=== PATIENT | female | born 1975 | race Caucasian/White ===

== ENCOUNTER → 2019-01-20 17:27 | Outpatient (CLI) | payer MEDICAID, SELFPAY ==
[2019-01-20 19:09] LABS: Amphetamine/Metha Screen,Urine Negative ng/mL (<1000); Barbiturates Screen,Urine Negative ng/mL (<200); Benzodiazepines Screen,Urine Negative ng/mL (<200); Cannabinoid Screen,Urine Negative ng/mL (<50); Cocaine Screen,Urine Negative ng/mL (<300); Methadone Screen,Urine Negative ng/mL (<300); Opiate Screen,Urine Negative ng/mL (<300); Phencyclidine Screen,Urine Negative ng/mL (<25)
== END ==
PROVIDERS: Visit Provider Emergency Medicine
DX: F41.9 Anxiety disorder, unspecified (principal); Z76.89 Persons encountering health services in other specified circumstances
CPT/HCPCS: 80305

== ENCOUNTER → 2019-03-03 10:59 | Outpatient (CLI) | payer MEDICAID, SELFPAY ==
[2019-03-03 12:50] LABS: Basophils % 0.6 % (0.1-2.0); Eosinophils # 0.8 K/mm3 (0.0-0.4); Eosinophils % 10.3 % (0.1-12.0); Hematocrit 45.9 % (37.0-47.0); Lymphocytes % 41.1 % (10-50); Mean Corpuscular HGB Conc 32.7 g/dL (31.8-35.4); Mean Corpuscular Hemoglobin 32.4 pg (27.0-31.2); Monocytes # 0.4 K/mm3 (0.1-1.0); Monocytes % 5.2 % (1.7-9.3); Neutrophils # 3.1 K/mm3 (1.8-7.8); Neutrophils % 42.9 % (37.0-80.0); Platelet Count 308 K/mm3 (142-424); Red Blood Count 4.64 M/mm3 (4.20-5.40); White Blood Count 7.3 K/mm3 (4.8-10.8)
[2019-03-03 14:23] LABS: Albumin Level 3.9 gm/dL (3.4-5.0); Blood Urea Nitrogen 13 mg/dL (7-18); Calcium 9.1 mg/dL (8.5-10.1); Chloride 102 mmol/L (98-107); Creatinine,Serum 0.64 mg/dL (0.55-1.02); Estimated Glomerular Filt Rate 102 ml/min (>60); GFR (African American) 123 ML/MIN (>60); Globulin 3.8 gm/dl (1.3-3.2); Sodium 139 mmol/L (136-145); Total Protein,Serum 7.7 gm/dL (6.4-8.2)
[2019-03-03 15:01] LABS: Amphetamine/Metha Screen,Urine Negative ng/mL (<1000); Barbiturates Screen,Urine Negative ng/mL (<200); Benzodiazepines Screen,Urine Negative ng/mL (<200); Cannabinoid Screen,Urine Negative ng/mL (<50); Cocaine Screen,Urine Negative ng/mL (<300); Methadone Screen,Urine Negative ng/mL (<300); Opiate Screen,Urine Negative ng/mL (<300); Phencyclidine Screen,Urine Negative ng/mL (<25)
[2019-03-03 15:49] LABS: Alanine Aminotransferase 74 U/L (12-78); Alkaline Phosphatase 94 U/L (46-116); Anion Gap 14.3 mEq/L (5-15); Bilirubin,Total 0.3 mg/dL (0.2-1.0); Carbon Dioxide 27 mmol/L (21.0-32.0); Chol/HDL Ratio 2.3 (1-3.5); Cholesterol 182 mg/dL (140-200); Free T4 (Free Thyroxine) 1.03 ng/dl (0.76-1.46); HDL Cholesterol 80 mg/dL (29-89); LDL Cholesterol 92 mg/dL (0-130); Potassium 4.3 mmoL/L (3.5-5.1); Thyroid Stimulating Hormone 3.49 uIU/ml (0.358-3.740); Triglycerides 52 mg/dL (30-200); VLDL Cholesterol 10 mg/dL (0-40)
[2019-03-03 15:50] LABS: Glucose 65 mg/dL (74-106)
[2019-03-03 15:51] LABS: Aspartate Amino Transferase 52 U/L (15-37)
[2019-03-04 07:11] LABS: Hep A Ab, IgM Negative (Negative); Hepatitis B Core Antibody IgM Negative (Negative); Hepatitis B Surface Antigen Negative (Negative)
[2019-03-05 03:32] LABS: Hepatitis C Antibody >11.0 s/co ratio (0.0-0.9)
== END ==
PROVIDERS: Visit Provider Emergency Medicine
DX: F41.9 Anxiety disorder, unspecified (principal); G47.9 Sleep disorder, unspecified; N92.6 Irregular menstruation, unspecified; R53.83 Other fatigue; Z79.899 Other long term (current) drug therapy
CPT/HCPCS: 36415; 80053; 80061; 80074; 80305; 82652; 84439; 84443; 85025

== ENCOUNTER → 2019-03-20 14:08 | Outpatient (CLI) | payer MEDICAID, SELFPAY ==
[2019-03-20 14:59] LABS: Basophils % 0.5 % (0.1-2.0); Eosinophils # 0.5 K/mm3 (0.0-0.4); Eosinophils % 6.9 % (0.1-12.0); Lymphocytes # 2.6 K/mm3 (0.7-4.5); Lymphocytes % 35.6 % (10-50); Mean Corpuscular HGB Conc 32.5 g/dL (31.8-35.4); Mean Corpuscular Hemoglobin 30.4 pg (27.0-31.2); Mean Corpuscular Volume 93.3 fl (81-99); Mean Platelet Volume 8.1 fl (7.4-10.4); Monocytes # 0.4 K/mm3 (0.1-1.0); Neutrophils # 3.7 K/mm3 (1.8-7.8); Neutrophils % 51.1 % (37.0-80.0); Platelet Count 265 K/mm3 (142-424); Red Cell Distribution Width 13.5 % (11.5-17.5); White Blood Count 7.2 K/mm3 (4.8-10.8)
[2019-03-20 15:37] LABS: Erythrocyte Sedimentation Rate 14 mm/hr (0-20)
[2019-03-20 15:50] LABS: Alanine Aminotransferase 66 U/L (12-78); Albumin Level 3.9 gm/dL (3.4-5.0); Alkaline Phosphatase 99 U/L (46-116); Anion Gap 12.2 mEq/L (5-15); Aspartate Amino Transferase 33 U/L (15-37); Bilirubin,Total 0.3 mg/dL (0.2-1.0); Blood Urea Nitrogen 12 mg/dL (7-18); Calcium 9.2 mg/dL (8.5-10.1); Carbon Dioxide 26 mmol/L (21.0-32.0); Chloride 103 mmol/L (98-107); Creatinine,Serum 0.65 mg/dL (0.55-1.02); Estimated Glomerular Filt Rate 100 ml/min (>60); GFR (African American) 121 ML/MIN (>60); Glucose 93 mg/dL (74-106); Potassium 4.2 mmoL/L (3.5-5.1); Sodium 137 mmol/L (136-145); Total Protein,Serum 7.9 gm/dL (6.4-8.2)
[2019-03-20 15:51] LABS: C-Reactive Protein < 0.2 mg/L (0.0-0.9)
[2019-03-22 11:10] LABS: Hep A Ab, IgM Negative (Negative); Hepatitis B Core Antibody IgM Negative (Negative); Hepatitis B Surface Antigen Negative (Negative)
[2019-03-22 14:10] LABS: Anti-Centromere B Antibodies 0.3 AI (0.0-0.9); Anti-Jo-1 <0.2 AI (0.0-0.9); Anti-Smith Antibody <0.2 AI (0.0-0.9); Antichromatin Antibodies <0.2 AI (0.0-0.9); Antiscleroderma-70 Antibodies <0.2 AI (0.0-0.9); RNP Antibodies 0.2 AI (0.0-0.9); Sjogren's Anti-SS-A 0.2 AI (0.0-0.9); Sjogren's Anti-SS-B <0.2 AI (0.0-0.9)
[2019-03-23 08:16] LABS: Hepatitis C Antibody >11.0 s/co ratio (0.0-0.9)
[2019-03-23 08:16] LABS: Anti-Cyclic Citrullinated Pept 4 units (0-19); Anti-DNA (DS) Ab Qn 2 IU/mL (0-9); RA Latex Turbid. 40.8 IU/mL (0.0-13.9)
[2019-03-25 17:12] LABS: HCV Genotype Charge YES; Hepatitis C Genotype 4 (.)
== END ==
PROVIDERS: Nurse Practitioner Family; Visit Provider Emergency Medicine
DX: L80 Vitiligo (principal); M19.90 Unspecified osteoarthritis, unspecified site; R76.8 Other specified abnormal immunological findings in serum
CPT/HCPCS: 36415; 80053; 80074; 85025; 85651; 86140; 86200; 86225; 86235; 86431; 87522; 87902

== ENCOUNTER → 2019-03-31 12:33 | Outpatient (CLI) | payer MEDICAID, SELFPAY ==
[2019-03-31 13:07] LABS: Prothrombin Time 9.4 seconds (9.4-11.8)
[2019-04-01 09:18] LABS: Hep B Core Ab, Total Negative (Negative)
[2019-04-01 18:47] LABS: Hep A Ab, Total Positive (Negative); Hep B Surface Ab, Qual Reactive (.)
== END ==
PROVIDERS: Visit Provider Emergency Medicine
DX: R76.8 Other specified abnormal immunological findings in serum (principal)
CPT/HCPCS: 36415; 85610; 86704; 86706; 86708

== ENCOUNTER 2021-09-24 18:50 | Emergency (ER) | payer MEDICAID, SELFPAY ==
[2021-09-24 20:34] VITALS: BP 0/0; PULSE 0; RESP 0; TEMP -17.7; TEMP 0; O2SAT 0
== END 2021-09-24 20:45 | disposition left against medical advice (07) ==
PROVIDERS: Emergency Provider Emergency Medicine; PCP Emergency Medicine
DX: Z53.21 Procedure and treatment not carried out due to patient leaving prior to being seen by health care provider (principal)
CPT/HCPCS: 99211

== ENCOUNTER 2024-05-10 15:26 | Outpatient (CLI) | payer MEDICAID, SELFPAY | END 2024-05-10 23:59 | disposition home or self-care (01) | LOC: LAB 15:30 | PROVIDERS: PCP Nurse Practitioner Family; Visit Provider Nurse Practitioner Family | DX: B19.20 Unspecified viral hepatitis C without hepatic coma (principal); R76.8 Other specified abnormal immunological findings in serum | CPT/HCPCS: 36415 ==

== ENCOUNTER 2024-05-31 09:22 | Outpatient (CLI) | payer MEDICAID, SELFPAY ==
--- NOTE | 2024-05-31 09:26 | XR_ITS ---
FINAL REPORT CLINICAL HISTORY: left wrist pain COMPARISON: None FINDINGS: LEFT WRIST Three views demonstrate no acute fracture or dislocation. The visualized joint spaces are normally aligned. The soft tissues are unremarkable. IMPRESSION: No acute bony abnormality. Reviewed, Interpreted and Dictated by Benji Freedman MD Transcribed by Marta Zayas Authenticated and [facility]
[2024-05-31 11:39] LABS: Alanine Aminotransferase 65 U/L (12-78); Albumin Level 4.4 g/dl (3.5-5.0); Albumin/Globulin Ratio 1.3 (1.1-1.8); Alkaline Phosphatase 73 U/L (38-126); Anion Gap 8.7 mEq/L (5-15); Aspartate Amino Transferase 69 U/L (14-36); Bilirubin,Total 0.7 mg/dl (0.2-1.3); Blood Urea Nitrogen 15 mg/dl (7-17); Calcium 9.6 mg/dl (8.4-10.2); Carbon Dioxide 26 mmol/L (22.0-30.0); Chloride 106 mmol/L (98-107); Chol/HDL Ratio 2.5 (1-3.5); Cholesterol 197 mg/dl (140-200); Estimated Glomerular Filt Rate 107 ml/min (>60); GFR (African American) 130 ML/MIN (>60); Globulin 3.4 g/dL (1.3-3.2); Glucose 78 mg/dl (74-100); HDL Cholesterol 78 mg/dl (40-60); Potassium 4.7 mmoL/L (3.5-5.1); Sodium 136 mmol/L (136-145); Total Protein,Serum 7.8 g/dl (6.3-8.2); Triglycerides 64 mg/dl (30-150); VLDL Cholesterol 13 mg/dL (0-40)
[2024-05-31 11:50] LABS: Direct LDL Cholesterol 87.56 mg/dL (100-129)
[2024-05-31 11:55] LABS: 25-OH Vitamin D, Total 34.1 ng/mL (30-100); HIV (1&2) Antibody Rapid NONREACTIVE (NONREACTIVE)
[2024-05-31 12:10] LABS: Thyroid Stimulating Hormone 1.86 uIU/mL (0.465-4.68)
[2024-05-31 13:50] LABS: Basophils % 0.6 % (0.1-2.0); Eosinophils # 0.4 K/mm3 (0.0-0.4); Hematocrit 47.6 % (37.0-47.0); Hemoglobin 15.4 g/dL (12.2-16.2); Lymphocytes # 2.4 K/mm3 (0.7-4.5); Lymphocytes % 40.4 % (10-50); Mean Corpuscular HGB Conc 32.4 g/dL (31.8-35.4); Mean Corpuscular Hemoglobin 32.7 pg (27.0-31.2); Mean Corpuscular Volume 101.2 fl (81-99); Mean Platelet Volume 9.8 fl (7.4-10.4); Monocytes # 0.5 K/mm3 (0.1-1.0); Monocytes % 8.1 % (1.7-9.3); Neutrophils # 2.7 K/mm3 (1.8-7.8); Neutrophils % 44.9 % (37.0-80.0); Platelet Count 252 K/mm3 (142-424); Red Cell Distribution Width 13.6 % (11.5-17.5)
[2024-06-01 05:22] LABS: Hep A Ab, Total Positive (Negative); Hep B Core Ab, Total Negative (Negative); Hep B Surface Ab, Qual Non Reactive (.)
[2024-06-03 19:08] LABS: HBsAg Screen Negative (Negative); HCV Ab Reactive (Non Reactive); Hep A Ab, IGM Negative (Negative); Hep B Core Ab, IgM Negative (Negative)
[2024-06-04 20:08] LABS: HCV Genotype Charge YES; Hepatitis C Genotype 4 (.)
[2024-07-11 14:12] LABS: Antinuclear Antibodies (ANA) Negative
== END 2024-05-31 23:59 | disposition home or self-care (01) ==
LOC: LAB 09:23
PROVIDERS: PCP Nurse Practitioner Family; Visit Provider Physician Assistant
DX: M25.532 Pain in left wrist (principal); B19.20 Unspecified viral hepatitis C without hepatic coma; R76.8 Other specified abnormal immunological findings in serum
CPT/HCPCS: 36415; 73110; 80050; 80053; 80061; 80074; 82306; 84443; 85025; 86038; 86225; 86235; 86704; 86706; 86708; 86803; 87389; 87522; 87902

== ENCOUNTER 2024-06-16 15:44 | Outpatient (CLI) | payer MEDICAID, SELFPAY ==
--- NOTE | 2024-06-16 15:44 | MR_ITS ---
PROCEDURE INFORMATION: Exam: MR Left Upper Extremity Joint Without Contrast; Wrist Exam date and time: 06/16/2024 3:57 PM Age: 48 years old Clinical indication: Pain; Wrist; Left; Additional info: Left wrist pain, cut on wrist on anterior aspect 2 years ago and states a tendon was cut. Limited use of hand TECHNIQUE: Imaging protocol: Magnetic resonance imaging of the left upper extremity without contrast. Exam focused on the wrist. COMPARISON: CR XR WRIST LT MIN 3V 05/31/2024 9:31 AM FINDINGS: Bones/joints: Unremarkable. No bone abnormalities. Articular cartilage is normal. No joint effusion. Scapholunate ligament: Unremarkable. No tear. Lunotriquetral ligament: Unremarkable. No tear. Triangular fibrocartilage complex: Unremarkable. No tear. Flexor compartment tendons: There is a well demarcated laceration involving the flexor digitorum superficialis tendon with residual torn tendon visualized beginning just distal to the wrist joint and extending distally into the hand. The proximal portion of this tendon cannot be identified with confidence. Remainder of the flexor tendons are unremarkable. Extensor compartment tendons: Unremarkable. No tear. Soft tissues: Unremarkable. IMPRESSION: Full-thickness tendon laceration involving flexor digitorum superficialis tendon.
== END 2024-06-16 23:59 | disposition home or self-care (01) ==
LOC: RAD 15:44
PROVIDERS: PCP Nurse Practitioner Family; Visit Provider Physician Assistant
DX: M25.532 Pain in left wrist (principal); S61.512A Laceration without foreign body of left wrist, initial encounter; S66.922A Laceration of unspecified muscle, fascia and tendon at wrist and hand level, left hand, initial encounter
CPT/HCPCS: 73221

== ENCOUNTER 2024-10-25 15:59 | Outpatient (CLI) | payer MEDICAID, SELFPAY ==
[2024-10-27 09:50] LABS: Chlamydia trachomatis Negative (Negative); Neisseria gonorrhoeae Negative (Negative); Trichomonas vaginalis Negative (Negative)
== END 2024-10-25 23:59 | disposition home or self-care (01) ==
LOC: LAB.DROPOF 10-26 15:59
PROVIDERS: PCP Nurse Practitioner Family; Visit Provider Nurse Practitioner Family
DX: N89.8 Other specified noninflammatory disorders of vagina (principal); R76.8 Other specified abnormal immunological findings in serum
CPT/HCPCS: 87210; 87491; 87591; 87661